=== PATIENT | female | born 1960 | race Caucasian/White ===

== ENCOUNTER 2017-03-12 16:27 | Observation (INO) | payer BC, MEDICARE ==
[~2017-03-12] VITALS: Ht 160 cm; Wt 59.7 kg
[2017-03-12 18:00] VITALS: BP 127/83
[2017-03-12 19:15] VITALS: BP 115/76
[2017-03-12] MEDS ORDERED: IV NORMAL SALINE 1000ML BAG 1,000 ML IV SCH (19:18)
[2017-03-12 19:35] VITALS: BP 127/83
[2017-03-12] MEDS ORDERED: GABA400C PO (20:00)
[2017-03-12] MEDS ORDERED: FLU VACC QS2017-18 (36MOS+)/PF 0.5 ML SYRINGE. VAX IM ONE (20:00)
[2017-03-12] MEDS ORDERED: CHOL500016 PO (20:00)
[2017-03-12] MEDS ORDERED: OXYC-327 PO (20:00)
[2017-03-12] MEDS ORDERED: CLON2TAB PO ×2 (20:00→21:49)
[2017-03-12] MEDS ORDERED: DEXT5TAB27 PO (20:00)
[2017-03-12] MEDS ORDERED: DULO30CA2 PO (20:00)
[2017-03-12] MEDS ORDERED: GABA800T PO (20:00)
[2017-03-12] MEDS ORDERED: CYCL10TA2 PO (20:00)
[2017-03-12] MEDS ORDERED: TRAZ300T2 PO (20:00)
[2017-03-12] MEDS ORDERED: OLAN10TA9 PO (20:00)
[2017-03-12] MEDS ORDERED: CYCLOBENZAPRINE 10 MG TABLET. PO PRN (20:15)
[2017-03-12] MEDS: NICOTINE 21MG PATCH. TD SCH (20:30)
[2017-03-12] MEDS ORDERED: clonazePAM 1 MG TABLET PO PRN (20:30)
[2017-03-12] MEDS ORDERED: oxyCODONE/APAP 7.5/325 1 TAB TABLET PO PRN ×2 (20:45)
[2017-03-12] MEDS ORDERED: DULoxetine HCL 30 MG CAPSULE.DR PO SCH (21:00)
[2017-03-12] MEDS ORDERED: traZODone 100 MG TABLET. PO SCH (21:00)
[2017-03-12] MEDS ORDERED: OLANZapine 5 MG TABLET PO SCH (21:00)
--- NOTE | 2017-03-12 21:00 | HP ---
ADMIT DATE: 03/12/2017 CHIEF COMPLAINT: Toe injury. HISTORY OF PRESENT ILLNESS: The patient is a 56-year-old woman with past medical history of fibromyalgia who presented to [facility] Emergency Room after slipping off her ladder barefoot catching her right fifth toe on one of the rungs and essentially degloving the distal carpal bone. This apparently cleanly came off and she brought [facility] skin cap in with her. She was transferred here for amputation. Dr. Long is aware. The patient relates that her pain currently is actually very well controlled. She has no other issues at this time. PAST MEDICAL HISTORY: Fibromyalgia, breast cancer 12 years ago, status post bilateral mastectomies. Cancer was on the right, left was resected prophylactically with reconstruction. FAMILY HISTORY: Positive for hypertension and heart disease in sister as well as father, multiple cancers as well. SOCIAL HISTORY: Lives with her , has picked up smoking again and smoking about a half a pack after having quit for many years. ALLERGIES: CODEINE AND KIWI. MEDICATIONS: MAR reconciled with home medications. REVIEW OF SYSTEMS: Positive as per HPI. Rest of organ system review currently is negative. PHYSICAL EXAMINATION: VITAL SIGNS: From today show a blood pressure of 127/83, heart rate of 70, respiratory rate at 16, she is afebrile. GENERAL: This is a 56-year-old woman, alert and oriented, in no acute distress, rapid speech. HEENT: Shows no scleral icterus. NECK: Supple. LUNGS: Clear. HEART: Regular rate and rhythm. ABDOMEN: Has positive bowel sounds, soft, nontender. EXTREMITIES: Show no edema. Right foot is wrapped in gauze and Kristofer bandage. LABORATORY DATA: Pending. ASSESSMENT AND PLAN: The patient is a 56-year-old woman with toe injury, which will require amputation of her fifth right digit. Dr. Long is already aware. The surgery is planned for tomorrow a.m. Main issue overnight will be pain control. She will have Percocet as well as morphine available p.r.n. Labs will be obtained. Her home medications for anxiety, depression, fibromyalgia, etc. will be continued. MELVINA METZ MD DR: GROVER/preston JOB#: [id number] / [id number] DAT Lucas MD MTDD
[2017-03-12] MEDS: GABAPENTIN 400 MG CAPSULE. PO SCH (21:43)
[2017-03-12] MEDS: CHOLECALCIFEROL (VITAMIN D3) 5,000 UNIT CAPSULE PO SCH (21:44)
[2017-03-12 23:23] VITALS: BP 104/56
[2017-03-13] VITALS (8 sets, daily range): BP systolic 91–109; BP diastolic 52–80
[2017-03-13] MEDS ORDERED: MORPHINE SULFATE 2 MG/ML DISP.SYRIN. IV PRN (06:45)
[2017-03-13] MEDS ORDERED: IV RINGERS,LACTATED 1000ML 1,000 ML IV SCH (06:54)
[2017-03-13 06:58] LABS: HEMATOCRIT 39.7 % (36.0-47.0); HEMOGLOBIN 13.2 g/dL (12.0-15.5); RED BLOOD COUNT 3.94 x10^6/uL (3.50-5.40); RED CELL DISTRIBUTION WIDTH 13.1 % (11.5-14.5); WHITE BLOOD COUNT 6.8 x10^3/uL (4.0-11.0)
[2017-03-13] MEDS ORDERED: fentaNYL PF VIAL 100 MCG/2 ML VIAL IV PRN (07:00)
[2017-03-13] MEDS ORDERED: ONDANSETRON PF 4 MG/2 ML VIAL. IV PRN (07:00)
[2017-03-13] MEDS ORDERED: LIDOCAINE 1% 1 ML SYRINGE. ID PRN (07:00)
[2017-03-13] MEDS ORDERED: PROCHLORPERAZINE 10 MG/2 ML VIAL. IV PRN (07:00)
[2017-03-13 07:15] LABS: CALCIUM 8.3 mg/dL (8.5-10.1); CREATININE 0.7 mg/dL (0.6-1.0); GFR 87.2; POTASSIUM 3.6 mmol/L (3.5-5.1)
[2017-03-13] MEDS ORDERED: SEVOFLURANE 61 TO 120 MINUTES. IH ONE (08:21)
[2017-03-13] MEDS ORDERED: fentaNYL PF VIAL 100 MCG/2 ML VIAL ONE ×3 (08:22→10:26)
[2017-03-13] MEDS ORDERED: MIDAZOLAM HCL/PF 2 MG/2 ML VIAL. ONE (08:22)
[2017-03-13] MEDS ORDERED: DEXAMETHASONE SOD PHOS 20 MG/5 ML VIAL. ONE (08:22)
[2017-03-13] MEDS ORDERED: PROPOFOL 20 ML IV ONE (08:22)
[2017-03-13] MEDS ORDERED: ONDANSETRON PF 4 MG/2 ML VIAL. ONE (08:22)
[2017-03-13] MEDS ORDERED: LIDOCAINE 2% PF Vial for OR 5 ML VIAL. ONE (08:22)
[2017-03-13] MEDS: GABAPENTIN 400 MG CAPSULE. PO SCH (08:28)
[2017-03-13] MEDS: CHOLECALCIFEROL (VITAMIN D3) 5,000 UNIT CAPSULE PO SCH (08:28)
[2017-03-13] MEDS: NICOTINE 21MG PATCH. TD SCH (08:29)
[2017-03-13] MEDS ORDERED: ceFAZolin 1GM IVPB FOR OMNI 1 GM/50 ML BAG IV ONE (08:55)
[2017-03-13] MEDS ORDERED: AMPHETAMINE PO SCH (09:00)
[2017-03-13] MEDS ORDERED: DEXTROAMPHETAMINE PO SCH (09:00)
[2017-03-13] MEDS: fentaNYL PF VIAL 100 MCG/2 ML VIAL IV PRN ×3 (09:22→10:30)
--- NOTE | 2017-03-13 09:35 | PDOC ---
BRIEF OPERATIVE NOTE Date: Mar 13, 2017 Pre-Op Diagnosis Traumatic amputation R 5th toe Post-Op Diagnosis same Procedure Performed I and D, completion amputation Surgeon Mercedes Anesthesiologist Raymond Anesthesia Type: General, Local Blood Loss see op report Complications none VIVI SWANSON II, MD Mar 13, 2017 09:35
[2017-03-13] MEDS ORDERED: LIDOCAINE 1% PF 30 ML VIAL. ONE (09:36)
[2017-03-13] MEDS ORDERED: BUPIVACAINE 0.5% 50 ML VIAL. ONE (09:36)
[2017-03-13] MEDS ORDERED: ePHEDrine PF IN SALINE 50 MG/5 ML DISP.SYRIN IV ONE (09:40)
[2017-03-13] MEDS ORDERED: FLU VACC QS2017-18 (36MOS+)/PF 0.5 ML SYRINGE. VAX IM ONE (10:00)
[2017-03-13] MEDS ORDERED: KETOROLAC 30 MG/ML INJ. ONE (10:34)
[2017-03-13] MEDS ORDERED: KETOROLAC 30 MG/ML INJ. IV ONE (10:45)
--- NOTE | 2017-03-13 11:10 | OP ---
DATE OF SURGERY: 03/13/2017 SURGEON: Cristobal Swanson MD. BOTTOM BUFFER: None. PREOPERATIVE DIAGNOSIS: Traumatic amputation of distal portion of right fifth toe. POSTOPERATIVE DIAGNOSIS: Traumatic amputation of distal portion of right fifth toe. PROCEDURE PERFORMED: 1. Completion amputation, right fifth toe. 2. Irrigation and debridement down to bone, excisional. COMPLICATIONS: None. ESTIMATED BLOOD LOSS: 5 mL. TOURNIQUET TIME: 14 minutes. ANESTHESIA: General plus local. REASON FOR PROCEDURE: The patient is a very pleasant 56-year-old female who I had seen in consultation last night after she slipped and fell barefoot on the ladder, suffering the above injury. Please see my consult note for further details. I had a discussion of partial distal ray amputation versus completion amputation and saving a small portion of the fifth toe and she really wanted to save as much of the toes as possible. I told this will be dictated by appropriate soft tissue coverage and explained this to her in layman's terms and she elected to proceed with surgery. DESCRIPTION OF PROCEDURE: The patient was greeted in the preoperative area by myself. Correct extremity was marked and verified. The patient was taken to the operative suite and antibiotics were started en route. Once in the OR, transferred gently supine to the OR table and had successful induction of general anesthetic. We then placed a nonsterile tourniquet to her right thigh and taped it in place. We then proceeded to prep and drape right lower extremity in our usual sterile fashion including Betadine paint. I then exsanguinated the extremity and I using only gravity insufflated the tourniquet to 250 mmHg. This was left in place for 14 minutes. After this, I irrigated out the open wound and inspected the soft tissue. She had a degloved and avulsed large portion of the plantar aspect of her toe, but still had a good amount on the dorsal aspect. I used a rongeur to trim back bone to give me a tension-free soft tissue coverage. I then freshened up the skin edges and reapproximated the skin edges using a dorsal flap. I closed the skin after irrigating it out again with simple interrupted 3-0 nylon. We then let the tourniquet down. The wound bed was dry. There was really oozing. I then injected 5 mL of local anesthetic mixture for a digital block affect. I then placed Xeroform, sterile gauze, Kerlix and loose Kristofer wrap over the foot and ankle below the bandages in place. Prior to completion of wound closure, all counts reported correct x 2. No complications. Postop plan is for her to weightbear through her heel, knee and rest as much as she is able to. She can be discharged home later today. She will follow up with me in 2 weeks, sooner should any problem arise. CRISTOBAL SWANSON MD DR: ENID/preston JOB#: [id number] / [id number] WILMER
[2017-03-13] MEDS ORDERED: GABAPENTIN 400 MG CAPSULE. PO SCH (12:00)
--- NOTE | 2017-03-13 12:23 | PDOC ---
PROGRESS NOTES Chief Complaint Chief Complaint Toe injury Fibromyalgia Breast CA w/ b/l mastectomy History of Present Illness History of Present Illness 56 yo F fell off a ladder and 5th digit of R foot was injured severely. No acute overnight events. Pt had toe amputated today 03/13/17. Pt was in recovery sedation during visit in [facility]. Dressing was CDI. Vitals Vitals Vital Signs Date Time Temp Pulse Resp B/P (MAP) Pulse Ox O2 Delivery O2 Flow Rate FiO2 03/13/17 11:15 95.7 70 18 97/55 (69) 99 Room Air 95.7 03/13/17 11:00 2.0 Physical Exam General: No acute distress, Other (Mildly sedated following surg) Heart: Regular rate, Normal S1, Normal S2 Lungs: Clear Abdomen: Normal bowel sounds, Soft Extremities: No clubbing, No cyanosis, Other (CDI bandage on R foot) Labs LABS Laboratory Tests Test 03/13/17 06:20 White Blood Count 6.8 x10^3/uL (4.0-11.0) Red Blood Count 3.94 x10^6/uL (3.50-5.40) Hemoglobin 13.2 g/dL (12.0-15.5) Hematocrit 39.7 % (36.0-47.0) Mean Corpuscular Volume 101 fL (79-100) Mean Corpuscular Hemoglobin 34 pg (25-35) Mean Corpuscular Hemoglobin Concent 33 g/dL (31-37) Red Cell Distribution Width 13.1 % (11.5-14.5) Platelet Count 227 x10^3/uL (140-400) Sodium Level 142 mmol/L (136-145) Potassium Level 3.6 mmol/L (3.5-5.1) Chloride Level 107 mmol/L (98-107) Carbon Dioxide Level 32 mmol/L (21-32) Anion Gap 3 (6-14) Blood Urea Nitrogen 12 mg/dL (7-20) Creatinine 0.7 mg/dL (0.6-1.0) Estimated GFR (Cockcroft-Gault) 87.2 Glucose Level 103 mg/dL (70-99) Calcium Level 8.3 mg/dL (8.5-10.1) Review of Systems Review of Systems Pt was sedated and in recovery, unable to perform full ROS Assessment and Plan Assessmemt and Plan R 5th toe amputation: stable following surg Continue pain meds Continue benzos prn for anxiety Continue IVF Continue home meds Continue nicotine patch Dispo: Likely DC to home today Problems: Comment Review of Relevant I have reviewed the following items yesenia (where applicable) has been applied. Labs Laboratory Tests Test 03/13/17 06:20 White Blood Count 6.8 x10^3/uL (4.0-11.0) Red Blood Count 3.94 x10^6/uL (3.50-5.40) Hemoglobin 13.2 g/dL (12.0-15.5) Hematocrit 39.7 % (36.0-47.0) Mean Corpuscular Volume 101 fL (79-100) Mean Corpuscular Hemoglobin 34 pg (25-35) Mean Corpuscular Hemoglobin Concent 33 g/dL (31-37) Red Cell Distribution Width 13.1 % (11.5-14.5) Platelet Count 227 x10^3/uL (140-400) Sodium Level 142 mmol/L (136-145) Potassium Level 3.6 mmol/L (3.5-5.1) Chloride Level 107 mmol/L (98-107) Carbon Dioxide Level 32 mmol/L (21-32) Anion Gap 3 (6-14) Blood Urea Nitrogen 12 mg/dL (7-20) Creatinine 0.7 mg/dL (0.6-1.0) Estimated GFR (Cockcroft-Gault) 87.2 Glucose Level 103 mg/dL (70-99) Calcium Level 8.3 mg/dL (8.5-10.1) Laboratory Tests Test 03/13/17 06:20 White Blood Count 6.8 x10^3/uL (4.0-11.0) Red Blood Count 3.94 x10^6/uL (3.50-5.40) Hemoglobin 13.2 g/dL (12.0-15.5) Hematocrit 39.7 % (36.0-47.0) Mean Corpuscular Volume 101 fL (79-100) Mean Corpuscular Hemoglobin 34 pg (25-35) Mean Corpuscular Hemoglobin Concent 33 g/dL (31-37) Red Cell Distribution Width 13.1 % (11.5-14.5) Platelet Count 227 x10^3/uL (140-400) Sodium Level 142 mmol/L (136-145) Potassium Level 3.6 mmol/L (3.5-5.1) Chloride Level 107 mmol/L (98-107) Carbon Dioxide Level 32 mmol/L (21-32) Anion Gap 3 (6-14) Blood Urea Nitrogen 12 mg/dL (7-20) Creatinine 0.7 mg/dL (0.6-1.0) Estimated GFR (Cockcroft-Gault) 87.2 Glucose Level 103 mg/dL (70-99) Calcium Level 8.3 mg/dL (8.5-10.1) Medications Current Medications Sodium Chloride 1,000 ml @ 100 mls/hr Q10H IV Last administered on 03/12/17 21:42; Start 03/12/17 at 19:18; Stop 03/13/17 at 05:17; Status DC Info (Do NOT chart on this placeholder) 0.5 each 1X ONCE MC ; Start 03/14/17 at 09:00; Stop 03/14/17 at 09:01; Status UNV Influenza Virus Vaccine Quadrival (Fluarix Quad [id number] Syringe) 0.5 ml ONCE ONCE VAX IM ; Start 03/12/17 at 20:00; Stop 03/12/17 at 20:01; Status Cancel Cyclobenzaprine HCl (Flexeril) 10 mg PRN QID PRN PO MUSCLE SPASMS; Start at 20:15 Duloxetine HCl (Cymbalta) 30 mg HS PO Last administered on 03/12/17 21:43; Start 03/12/17 at 21:00 Gabapentin (Neurontin) 400 mg DAILYWLUN PO ; Start 03/13/17 at 12:00 Vitamin D (Vitamin D3) 5,000 unit DAILY PO Last administered on 03/12/17 21:44 ; Start 03/12/17 at 21:00 Clonazepam (KlonoPIN) 2 mg PRN DAILY PRN PO ANXIETY / AGITATION; Start at 20:30 Non-Formulary Medication 30 mg DAILY PO ; Start 03/13/17 at 09:00; Status UNV Gabapentin (Neurontin) 800 mg BID PO Last administered on 03/12/17 21:43; Start 03/12/17 at 21:00 Olanzapine (ZyPREXA) 10 mg QHS PO Last administered on 03/12/17 22:19; Start 03/12/17 at 21:00 Trazodone HCl (Desyrel) 300 mg QHS PO Last administered on 03/12/17 21:44; Start 03/12/17 at 21:00 Nicotine (Nicoderm Cq 21mg) 1 patch DAILY TD ; Start 03/12/17 at 20:30 Influenza Virus Vaccine Quadrival (Fluarix Quad [id number] Syringe) 0.5 ml ONCE ONCE VAX IM ; Start 03/13/17 at 10:00; Stop 03/13/17 at 10:29; Status DC Oxycodone/ Acetaminophen (Percocet 7.5/ 325) 1 tab PRN Q4HRS PRN PO PAIN MOD TO SEV; Start 03/12/17 at 20:45 Oxycodone/ Acetaminophen (Percocet 7.5/ 325) 2 tab PRN Q4HRS PRN PO PAIN MOD TO SEV Last administered on 03/12/17 20:50; Start 03/12/17 at 20:45 Cefazolin Sodium 1 gm/Sodium Chloride 50 ml @ 100 mls/hr 1X ONCE IV ; Start at 21:00; Stop 03/12/17 at 21:29; Status UNV Cefazolin Sodium 50 ml @ 100 mls/hr 1X ONCE IV ; Start 03/12/17 at 21:00; Stop 03/12/17 at 21:29; Status Cancel Non-Formulary Medication 10 mg HS PO ; Start 03/13/17 at 21:00; Status UNV Cefazolin Sodium 50 ml @ 100 mls/hr PREOP PRN PRN IV PREOP; Start 03/13/17 at 08:00; Stop 03/14/17 at 07:59 Morphine Sulfate 2 mg PRN Q2HR PRN IV SEVERE PAIN Last administered on 06:48; Start 03/13/17 at 06:45 Ondansetron HCl (Zofran) 4 mg PRN Q6HRS PRN IV NAUSEA/VOMITING; Start 03/13/17 at 07:00; Stop 03/14/17 at 06:59 Fentanyl Citrate (Fentanyl 2ml Vial) 25 mcg PRN Q5MIN PRN IV MILD PAIN; Start 03/13/17 at 07:00; Stop 03/14/17 at 06:59 Fentanyl Citrate (Fentanyl 2ml Vial) 50 mcg PRN Q5MIN PRN IV MODERATE PAIN Last administered on 03/13/17t 10:12; Start 03/13/17 at 07:00; Stop 03/14/17 at 06:59 Ringer's Solution 1,000 ml @ 30 mls/hr Q24H IV ; Start 03/13/17 at 06:54; Stop 03/13/17 at 18:53 Lidocaine HCl 2 ml PRN 1X PRN ID PRIOR TO IV START; Start 03/13/17 at 07:00; Stop 03/14/17 at 06:59 Prochlorperazine Edisylate (Compazine) 5 mg PACU PRN PRN IV NAUSEA, MRX1; Start 03/13/17 at 07:00; Stop 03/14/17 at 06:59 Sevoflurane (Ultane) 60 ml STK-MED ONCE IH ; Start 03/13/17 at 08:21; Stop 03/13 at 08:22; Status DC Midazolam HCl (Versed) 2 mg STK-MED ONCE .ROUTE ; Start 03/13/17 at 08:22; Stop 03/13/17 at 08:23; Status DC Fentanyl Citrate (Fentanyl 2ml Vial) 100 mcg STK-MED ONCE .ROUTE ; Start at 08:22; Stop 03/13/17 at 08:23; Status DC Propofol 20 ml @ As Directed STK-MED ONCE IV ; Start 03/13/17 at 08:22; Stop at 08:23; Status DC Dexamethasone Sodium Phosphate (Decadron) 20 mg STK-MED ONCE .ROUTE ; Start at 08:22; Stop 03/13/17 at 08:23; Status DC Ondansetron HCl (Zofran) 4 mg STK-MED ONCE .ROUTE ; Start 03/13/17 at 08:22; Stop 03/13/17 at 08:23; Status DC Lidocaine HCl (Lidocaine Pf 2% Vial) 5 ml STK-MED ONCE .ROUTE ; Start 03/13/17 at 08:22; Stop 03/13/17 at 08:23; Status DC Fentanyl Citrate (Fentanyl 2ml Vial) 100 mcg STK-MED ONCE .ROUTE ; Start at 09:16; Stop 03/13/17 at 09:17; Status DC Cefazolin Sodium 1 gm/Sodium Chloride 50 ml @ 100 mls/hr Q6H IV ; Start at 14:00; Stop 03/14/17 at 02:29 Bupivacaine HCl (Marcaine 0.5%) 50 ml STK-MED ONCE .ROUTE Last administered on 03/13/17 09:46; Start 03/13/17 at 09:36; Stop 03/13/17 at 09:37; Status DC Lidocaine HCl 30 ml STK-MED ONCE .ROUTE Last administered on 03/13/17 09:46; Start 03/13/17 at 09:36; Stop 03/13/17 at 09:37; Status DC Ephedrine Sulfate 50 mg STK-MED ONCE IV ; Start 03/13/17 at 09:40; Stop at 09:41; Status DC Fentanyl Citrate (Fentanyl 2ml Vial) 100 mcg STK-MED ONCE .ROUTE ; Start at 10:26; Stop 03/13/17 at 10:27; Status DC Ketorolac Tromethamine (Toradol) 30 mg STK-MED ONCE .ROUTE ; Start 03/13/17 at 10:34; Stop 03/13/17 at 10:35; Status DC Ketorolac Tromethamine (Toradol) 30 mg 1X ONCE IV Last administered on 10:41; Start 03/13/17 at 10:45; Stop 03/13/17 at 10:49; Status DC Active Scripts Active Reported Klonopin (Clonazepam) 2 Mg Tablet 10 Mg PO HS Vitamin D3 (Cholecalciferol (Vitamin D3)) 5,000 Unit Tablet 5,000 Unit PO DAILY Percocet 7.5-325 Mg Tablet (Oxycodone/Acetaminophen) 1 Each Tablet 2 Tab PO PRN Q6HRS PRN Percocet 7.5-325 Mg Tablet (Oxycodone/Acetaminophen) 1 Each Tablet 1 Tab PO PRN Q6HRS PRN Cymbalta (Duloxetine Hcl) 30 Mg Capsule.dr 30 Mg PO HS Cyclobenzaprine Hcl 10 Mg Tablet 10 Mg PO PRN QID PRN Trazodone Hcl 300 Mg Tablet 300 Mg PO HS Olanzapine 10 Mg Tablet 10 Mg PO HS Adderall 5 Mg Tablet (Dextroamphetamine/Amphetamine) 5 Mg Tablet 30 Mg PO DAILY Neurontin (Gabapentin) 800 Mg Tablet 800 Mg PO BID Neurontin (Gabapentin) 400 Mg Capsule 400 Mg PO DAILYWLUN Vitals/I & O Vital Sign - Last 24 Hours 03/12/17 03/12/17 03/12/17 03/12/17 18:00 19:14 19:15 19:35 Temp 95.9 97.9 95.9 95.9 97.9 95.9 Pulse 70 70 70 Resp 16 16 16 B/P (MAP) 127/83 (98) 115/76 (89) 127/83 (98) Pulse Ox 92 92 92 O2 Delivery Room Air Room Air Room Air 03/12/17 03/12/17 03/12/17 03/12/17 20:00 20:50 21:50 23:23 Temp 98.4 98.4 Pulse 59 Resp 16 16 B/P (MAP) 104/56 (72) Pulse Ox 95 O2 Delivery Room Air Room Air Room Air Room Air 03/13/17 03/13/17 03/13/17 03/13/17 02:38 06:48 07:00 07:20 Temp 97.5 97.9 97.5 97.9 Pulse 66 61 Resp 16 16 B/P (MAP) 99/69 (79) 102/52 (69) Pulse Ox 95 90 95 O2 Delivery Room Air Room Air Room Air Room Air 03/13/17 03/13/17 03/13/17 03/13/17 07:30 09:19 09:22 10:05 Temp 98.0 98.5 98.0 98.5 Pulse 73 77 Resp 22 21 19 B/P (MAP) 101/68 106/62 Pulse Ox 94 94 100 O2 Delivery Room Air Room Air Room Air Nasal Cannula O2 Flow Rate 2 03/13/17 03/13/17 03/13/17 03/13/17 10:20 10:30 10:35 10:50 Temp 98.0 98.0 Pulse 69 62 66 Resp 18 16 18 16 B/P (MAP) 100/63 110/70 104/55 Pulse Ox 100 100 98 100 O2 Delivery Nasal Cannula Room Air Nasal Cannula Room Air O2 Flow Rate 2 2 03/13/17 03/13/17 11:00 11:15 Temp 95.7 95.7 Pulse 70 Resp 18 B/P (MAP) 97/55 (69) Pulse Ox 98 99 O2 Delivery Room Air Room Air O2 Flow Rate 2.0 Intake and Output 03/13/17 03/13/17 03/14/17 15:00 23:00 07:00 Intake Total 10 ml Balance 10 ml JAMISON GRAJEDA III, DO Mar 13, 2017 12:23
--- NOTE | 2017-03-13 18:15 | CONS ---
DATE OF CONSULTATION: 03/12/2017 REFERRING PROVIDER: Marion Lockett MD. CONSULTING PROVIDER: Cristobal Swanson MD. CHIEF COMPLAINT: Right fifth toe pain. HISTORY OF PRESENT ILLNESS: The patient is a very pleasant 56-year-old fairly healthy female who slipped and fell while climbing barefoot on a ladder tearing off essentially half of her toe and degloving a large portion of it on her right foot at the fifth toe. She complains of pain at this area that is radiating proximally. It is worse when she tries to weightbear on it. She was seen initially in an outside institution and sent here for definitive management. She denies any other injury. No other complaints or concerns. ALLERGIES: 1. CODEINE. 2. KIWI. PAST MEDICAL HISTORY: Fibromyalgia, history of breast cancer. PAST SURGICAL HISTORY: Bilateral mastectomies. FAMILY HISTORY: Hypertension, heart disease. SOCIAL HISTORY: Lives with family. She smokes half a pack per day. MEDICATIONS: Reviewed, please see MRAD. REVIEW OF SYSTEMS: Negative except as per HPI. PHYSICAL EXAMINATION: VITAL SIGNS: Reviewed. GENERAL: The patient is alert and oriented, no acute distress. She is examined in the hospital bed. HEENT: Normocephalic, atraumatic. Extraocular muscles are intact. CARDIOVASCULAR: Regular rate and rhythm. Dorsalis pedis 2+. No edema in her lower extremities. LUNGS: Respirations are unlabored with symmetric chest size. ABDOMEN: Soft, nondistended. EXTREMITIES: Examination of right lower extremity reveals traumatic avulsion of the distal half of her fifth toe with degloving to approximately the MTP joint plantarly. No other wounds. There is exposed bone. Normal sensation. She can wiggle the remainder of her toes. IMAGING: X-rays are reviewed and show amputation through the middle phalanx of her right third toe. Her x-rays are interpreted by myself. Report was also reviewed. IMPRESSION: Traumatic amputation, right fifth toe. PLAN: I did discuss irrigation, debridement and completion amputation with her. She does wish to save as much of the toes as possible. I did discuss with her that this will be dictated by appropriate soft tissue coverage and answered her and her daughter's questions. OR tomorrow morning. CRISTOBAL SWANSON MD DR: ENID/preston JOB#: [id number] / [id number] WILMER
[2017-03-13] MEDS ORDERED: CLONAZEPAM PO SCH (21:00)
[2017-03-14] MEDS ORDERED: INFLUENZA VAX SCREEN BY RX. MC ONE (09:00)
== END 2017-03-13 15:10 | disposition home or self-care (01) ==
LOC: 4 NORTH 18:06 → INTOOBSV 18:06
PROVIDERS: ADMIT Internal Medicine Hematology & Oncology; ATTEND Internal Medicine Hematology & Oncology
DX: S98.141A Partial traumatic amputation of one right lesser toe, initial encounter (principal); F32.9 Major depressive disorder, single episode, unspecified; F17.210 Nicotine dependence, cigarettes, uncomplicated; F41.9 Anxiety disorder, unspecified; M79.7 Fibromyalgia; Z82.49 Family history of ischemic heart disease and other diseases of the circulatory system; Z85.3 Personal history of malignant neoplasm of breast; Z90.13 Acquired absence of bilateral breasts and nipples; Y93.89 Activity, other specified; Y92.89 Other specified places as the place of occurrence of the external cause; W01.0XXA Fall on same level from slipping, tripping and stumbling without subsequent striking against object, initial encounter; Y99.8 Other external cause status
CPT/HCPCS: 11044; 28810; 36415; 80048; 85027; 96374; 97162; G0378; J0690; J1100; J1885; J2250; J2270; J2405; J2704; J3010; J3490; J7030; G0379; J2001

== ENCOUNTER 2017-06-25 14:13 | Emergency (ER) | payer MEDICARE, BC ==
[2017-06-25] MEDS ORDERED: IPRATRPIUM/ALBUTEROL 0.5/2.5MG 3 ML NEBU. (15:32)
[2017-06-25] MEDS: IPRATRPIUM/ALBUTEROL 0.5/2.5MG 3 ML NEBU. NEB ×2 (15:35→16:30)
[2017-06-25 16:46] LABS: ADD MAN DIFF? NO
[2017-06-25 16:48] LABS: BASO % 0 % (0-3); EOS % 0 % (0-3); HEMATOCRIT 41.3 % (36.0-47.0); HEMOGLOBIN 13.8 g/dL (12.0-15.5); LYMPH # 1.3 x10^3/uL (1.0-4.8); LYMPH % 13 % (24-48); MEAN CORPUSCULAR HEMOGLOBIN 33 pg (25-35); MEAN CORPUSCULAR HGB CONC 34 g/dL (31-37); MEAN CORPUSCULAR VOLUME 98 fL (79-100); MONO % 8 % (0-9); NEUT % 79 % (31-73); PLATELET COUNT 248 x10^3/uL (140-400); RED BLOOD COUNT 4.24 x10^6/uL (3.50-5.40); RED CELL DISTRIBUTION WIDTH 13.5 % (11.5-14.5); WHITE BLOOD COUNT 9.6 x10^3/uL (4.0-11.0)
[2017-06-25] MEDS: methylPREDNISolone SOD SUCC PF 125 MG/2 ML VIAL. IV (16:48)
[2017-06-25] MEDS: IV NORMAL SALINE 1000ML BAG 1,000 ML IV (16:48)
[2017-06-25 16:59] LABS: ANION GAP 13 (6-14); BLOOD UREA NITROGEN 12 mg/dL (7-20); CALCIUM 8.8 mg/dL (8.5-10.1); CARBON DIOXIDE 25 mmol/L (21-32); CHLORIDE 100 mmol/L (98-107); GFR 57.8; GLUCOSE 152 mg/dL (70-99); SODIUM 138 mmol/L (136-145)
[2017-06-25 17:21] LABS: TROPONINI < 0.017 ng/mL (0.000-0.055)
== END 2017-06-25 18:50 | disposition home or self-care (01) ==
LOC: ER 14:13
DX: J44.1 Chronic obstructive pulmonary disease with (acute) exacerbation (principal); F41.9 Anxiety disorder, unspecified; J06.9 Acute upper respiratory infection, unspecified; F32.9 Major depressive disorder, single episode, unspecified; M79.7 Fibromyalgia; Z90.13 Acquired absence of bilateral breasts and nipples; Z86.19 Personal history of other infectious and parasitic diseases; Z88.5 Allergy status to narcotic agent; Z91.018 Allergy to other foods
CPT/HCPCS: 36415; 71010; 80048; 84484; 85025; 93005; 94640; 96361; 96374; 96375; 99285-25; J2060; J2930; J7030; J7620

== ENCOUNTER → 2017-07-15 | Outpatient (CLI) | payer MEDICARE, BC | END | disposition home or self-care (01) | LOC: KCIC MRI 13:01 | DX: M19.011 Primary osteoarthritis, right shoulder (principal); M25.411 Effusion, right shoulder | CPT/HCPCS: 73221 ==

== ENCOUNTER → 2019-03-30 | Outpatient (CLI) | payer MEDICARE, BC ==
[2017-06-25 18:43] VITALS: BP 120/70
[~2019-03-30] MED LIST: BENZ-8 PO; CHOL500016 PO; CLON2TAB PO; CYCL10TA2 PO; DEXT5TAB27 PO; DULO30CA2 PO; GABA-689 PO; GABA800T PO; OLAN10TA9 PO; ONDA4TAB10 SL; OXYC1TAB19 PO; PRED20TA PO; TRAZ300T2 PO
--- NOTE | 2019-03-30 15:48 | KCIC ---
Examination: MRI of the left ankle without contrast HISTORY: History of left ankle pain COMPARISON: None available TECHNIQUE: Multiplanar, multisequence MR imaging of the left ankle are performed without contrast FINDINGS: The Achilles tendon grossly appears intact. The attachment of the plantar fascia to the inferior aspect of the calcaneus grossly appears intact. Vertical nondisplaced fracture of the distal calcaneus with moderate surrounding trabecular edema. The alignment of the tarsal bones grossly appears unremarkable. Mild edema identified in the sinus tarsi. The anterior extensor tendons, flexor tendons grossly appears unremarkable. There is a longitudinal split tear of the peroneus longus tendon distal to the fibula. Moderate increased intermediate T1 signal identified in the peroneus longus tendon likely tendinopathy. The attachment of the peroneus longus, peroneal brevis tendon grossly appears intact. Small amount of fluid identified about the peroneal tendons at the level of the fibula. The anterior, posterior tibiofibular ligament, talofibular ligament appear intact. The Lisfranc ligament appears intact. IMPRESSION: 1. Nondisplaced fracture of the distal calcaneus. 2. Moderate tendinopathy peroneus longus with longitudinal split tear of the peroneus longus tendon. Mild tenosynovitis peroneal tendons. Electronically signed by: Marques Perdomo MD (03/30/2019 3:46 PM) [facility]
== END | disposition home or self-care (01) ==
LOC: KCIC MRI 13:49
PROVIDERS: ATTEND Orthopaedic Surgery
DX: S92.025A Nondisplaced fracture of anterior process of left calcaneus, initial encounter for closed fracture (principal); Z88.5 Allergy status to narcotic agent; Z91.09 Other allergy status, other than to drugs and biological substances; X58.XXXA Exposure to other specified factors, initial encounter; Y93.89 Activity, other specified; Y92.89 Other specified places as the place of occurrence of the external cause; Y99.8 Other external cause status
CPT/HCPCS: 73721

== ENCOUNTER → 2019-04-06 | Outpatient (CLI) | payer MEDICARE, BC ==
[2017-06-25 18:43] VITALS: BP 120/70
--- NOTE | 2019-04-06 17:12 | KCIC ---
EXAM: AP and lateral views of the cervical spine DATE: 04/06/2019 12:00 AM CLINICAL HISTORY: Cervical spine fusion COMPARISON: None available. FINDINGS: On the lateral view, the cervical spine is imaged from the skull base through C7. Postoperative changes of C4-5 laminectomy and posterolateral fixation are again anatomic alignment without definite hardware complication. Changes of ventral cervical discectomy and fusion C5-6 and C6-7 are essentially stable to 03/10/2019 with stable fracture through the anterior plate at C6-7. Evaluation for bony bridging at C6-7 limited. Vertebral body heights are preserved. Mild C4-5 disc height loss. Straightening of the normal cervical lordosis. No spondylolisthesis. Normal predental space. No significant prevertebral soft tissue swelling. IMPRESSION: Postsurgical changes as above. The C4-5 laminectomy and posterolateral fusion is in near-anatomic alignment without definite hardware complication. Electronically signed by: Jasiel Liu MD (04/06/2019 5:09 PM) [facility]
== END | disposition home or self-care (01) ==
LOC: KCIC 16:01
PROVIDERS: ATTEND Neurological Surgery
DX: M48.02 Spinal stenosis, cervical region (principal); Z98.890 Other specified postprocedural states
CPT/HCPCS: 72040

== ENCOUNTER 2021-09-23 17:24 | Emergency (ER) | payer MEDICARE, BC ==
[~2021-09-23] VITALS: Ht 157.5 cm; Wt 50.4 kg
[~2021-09-23 17:24] MED LIST changes: +CYCL10TA19 PO; -CYCL10TA2 PO; +OLAN10TA69 PO; -OLAN10TA9 PO
[2021-09-23] MEDS ORDERED: HYDROcodone/APAP 5/325MG 1 TAB TABLET PO ONE (18:15)
[2021-09-23] MEDS ORDERED: diazePAM 5 MG TABLET PO ONE (18:15)
--- NOTE | 2021-09-23 18:52 | RAD ---
XR ELBOW COMPLETE_RIGHT 3+ VIEWS 09/23/2021 6:24 PM INDICATION: Fall COMPARISON: None available. TECHNIQUE: 3 views of the right elbow are provided. FINDINGS/ IMPRESSION: There may be a small elbow joint effusion. There is no acute fracture or dislocation. Although, given small elbow joint effusion, fracture remains a differential consideration. Short-term follow-up coul d be of benefit. 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 Bone mineralization is within normal limits. Regional soft tissues are within normal limits. There is no soft tissue gas or osseous erosion. No radiopaque foreign body. Electronically signed by: Estephanie Holland MD (09/23/2021 6:50 PM) [facility]
--- NOTE | 2021-09-23 18:57 | RAD ---
PQRS Compliance Statement: One or more of the following individualized dose reduction techniques were utilized for this examinat ion: 1. Automated exposure control 2. Adjustment of the mA and/or kV according to patient size 3. Use of iterative reconstruction technique CT THORACIC SPINE WO 09/23/2021 6:06 PM Indication: Fall with pain in the mid back COMPARISON: None available. TECHNIQUE: Multiple axial CT images of the thoracic spine were obtained with intravenous contrast. Co olayinka and sagittal reformats are provided. FINDINGS: There is reverse S-shaped scoliosis of the thoracolumbar spine with apex levocurvature at T3-T4 and a pex dextrocurvature at T9-T10. Anterior cervical discectomy and fusion hardware is identified from C5 through C7. Moderate disc height loss at C2-3 and moderate to advanced disc height loss at T3-T4. Mi ld disc height loss at C4-5. Vertebral body heights are maintained. No acute fracture is identified. Spinous processes are intact. Mild to moderate facet arthropathy in lower thoracic spine. There is no prevertebral edema. No paraspinal soft tissue hematoma. No compressive epidural hematoma. No signifi cant osseous spinal canal stenosis. At T10-T11, there is mild disc bulge with mild facet arthropathy resulting in mild osseous spinal canal stenosis. At T11-T12, there is a mild disc bulge with calcific ation of ligamentum flavum resulting in mild spinal canal stenosis. Indentation the left posterolater al thecal sac. Thoracic aorta is normal in course and caliber. There is a groundglass nodule in the medial left lowe r lobe measuring 8 mm. Subsegmental atelectasis in the medial right lower lobe. No pathologically enl arged thoracic lymph nodes. Thoracic esophagus is normal in appearance. Hyperdense cyst involving the superior pole the left kidney measures 5 mm a cyst complicated by hemorrhage or protein. 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 No acute fractu re. Electronically signed by: Estephanie Holland MD (09/23/2021 6:54 PM) [facility]
[2021-09-23] MEDS ORDERED: CYCL10TA19 PO (19:44)
--- NOTE | 2021-09-23 19:44 | PHYS DOC ---
Past Medical History Past Medical History: Anxiety, Asthma, Cancer, Depression, Fibromyalgia, Hepatitis, Other Additional Past Medical Histor: breast CA; Hep C, CURED NOW, NEUROPATHY Past Surgical History: Knee Replacement, Other Additional Past Surgical Histo: bilateral mastectomy with breast aug; D&C; toes, BACK SURGERY, Smoking Status: Current Every Day Smoker Alcohol Use: Occasionally Drug Use: None General Adult EDM: Chief Complaint: MECHANICAL FALL HPI: HPI: Patient is a 60 year old female who presents the ED today complaining of 10 out of 10 right mid back pain, right elbow pain, symptoms began after she fell. She states she was walking with her dog at a gas station, she states she tripped over uneven surface of the concrete and fell landing on her right side. Denies any loss of consciousness. Denies being on any blood thinners. Denies any head pain, neck pain. Reports the pain is sharp worse on deep breaths. Denies anything relieving the pain right now. Review of Systems: Review of Systems: Constitutional: Denies fever or chills. [] Eyes: Denies change in visual acuity. [] HENT: Denies nasal congestion or sore throat. [] Respiratory: Denies cough or shortness of breath. [] Cardiovascular: Denies chest pain or edema. [] GI: Denies abdominal pain, nausea, vomiting, bloody stools or diarrhea. [] : Denies dysuria. [] Musculoskeletal: Reports right mid back pain, right elbow pain Integument: Denies rash. [] Neurologic: Denies headache, focal weakness or sensory changes. [] Psychiatric: Denies depression or anxiety. [] Heart Score: C/O Chest Pain: N/A Risk Factors: Risk Factors: DM, Current or recent (<one month) smoker, HTN, HLP, family history of CAD, obesity. Risk Scores: Score 0 - 3: 2.5% MACE over next 6 weeks - Discharge Home Score 4 - 6: 20.3% MACE over next 6 weeks - Admit for Clinical Observation Score 7 - 10: 72.7% MACE over next 6 weeks - Early Invasive Strategies Current Medications: Current Medications Medications (Trade) Dose Ordered Sig/Cam Start Time Stop Time Status Last Admin Dose Admin Acetaminophen/ Hydrocodone Bitart (Lortab 5/325) 1 tab 1X ONCE 09/23/21 18:15 09/23/21 18:19 DC 09/23/21 18:42 1 TAB Diazepam (Valium) 5 mg 1X ONCE 09/23/21 18:15 09/23/21 18:19 DC 09/23/21 18:40 5 MG Allergies: Allergies: Allergies Coded Allergies Type Severity Reaction Last Updated Verified codeine Allergy Intermediate 03/12/17 Yes kiwi Allergy Intermediate 03/12/17 Yes Physical Exam: PE: Constitutional: Well developed, well nourished, no acute distress, non-toxic appearance. [] HENT: Normocephalic, atraumatic, bilateral external ears normal, oropharynx moist, no oral exudates, nose normal. [] Eyes: PERRLA, EOMI, conjunctiva normal, no discharge. [] Neck: Normal range of motion, no tenderness, supple, no stridor. [] Cardiovascular:Heart rate regular rhythm, no murmur [] Lungs & Thorax: Bilateral breath sounds clear to auscultation [] Abdomen: Bowel sounds normal, soft, no tenderness, no masses, no pulsatile masses. [] Skin: Warm, dry, no erythema, no rash. [] Back: Tenderness on palpation of the mid right thoracic spine, no midline thoracic spine tenderness, no CVA tenderness. [] Extremities: Right elbow with bruising at the olecranon process, tenderness over the region, full range of motion to the right elbow including flexion and extension of the right forearm, plantarflexion and dorsiflexion of the right forearm. Adequate radial, median, ulnar sensation to the right fingers, no cyanosis. Neurologic: Alert and oriented X 3, normal motor function, normal sensory function, no focal deficits noted. Cranial nerves II through XII intact Psychologic: Affect normal, judgement normal, mood normal. [] Current Patient Data: Vital Signs: Vital Signs Date Time Temp Pulse Resp B/P (MAP) Pulse Ox O2 Delivery O2 Flow Rate FiO2 09/23/21 18:42 18 94 Room Air 09/23/21 17:30 98.0 69 109/70 (83) 98.0 EKG: EKG: [] Radiology/Procedures: Radiology/Procedures: []PROCEDURE: CT THORACIC SPINE WO CONTRAST PQRS Compliance Statement: One or more of the following individualized dose reduction techniques were utilized for this examination: 1. Automated exposure control 2. Adjustment of the mA and/or kV according to patient size 3. Use of iterative reconstruction technique CT THORACIC SPINE WO 09/23/2021 6:06 PM Indication: Fall with pain in the mid back COMPARISON: None available. TECHNIQUE: Multiple axial CT images of the thoracic spine were obtained with in travenous contrast. Coronal and sagittal reformats are provided. FINDINGS: There is reverse S-shaped scoliosis of the thoracolumbar spine with apex levocurvature at T3-T4 and apex dextrocurvature at T9-T10. Anterior cervical discectomy and fusion hardware is identified from C5 through C7. Moderate disc height loss at C2-3 and moderate to advanced disc height loss at T3-T4. Mild d isc height loss at C4-5. Vertebral body heights are maintained. No acute fracture is identified. Spinous processes are intact. Mild to moderate facet arthropathy in lower thoracic spine. There is no prevertebral edema. No paraspinal soft tissue hematoma. No compressive epidural hematoma. No significant osseous spinal canal stenosis. At T10-T11, there is mild disc bulge with mild facet arthropathy resulting in mild osseous spinal canal stenosis. At T11-T12, there is a mild disc bulge with calcification of ligamentum flavum resulting in mild spinal canal stenosis. Indentation the left posterolateral thecal sac. Thoracic aorta is normal in course and caliber. There is a groundglass nodule in the medial left lower lobe measuring 8 mm. Subsegmental atelectasis in the medial right lower lobe. No pathologically enlarged thoracic lymph nodes. Thoracic esophagus is normal in appearance. Hyperdense cyst involving the superior pole the left kidney measures 5 mm a cyst complicated by hemorrhage or protein. 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 No acute fracture. Electronically signed by: Julito Holland MD (09/23/2021 6:54 PM) [facility] DICTATED and SIGNED BY: JULITO HOLLAND MD DATE: 09/23/211849 PROCEDURE: ELBOW RIGHT 3V XR ELBOW COMPLETE_RIGHT 3+ VIEWS 09/23/2021 6:24 PM INDICATION: Fall COMPARISON: None available. TECHNIQUE: 3 views of the right elbow are provided. FINDINGS/ IMPRESSION: There may be a small elbow joint effusion. There is no acute fracture or dislocation. Although, given small elbow joint effusion, fracture remains a differential consideration. Short-term follow-up could be of benefit. 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 Bone mineralization is within normal limits. Regional soft tissues are within normal limits. There is no soft tissue gas or osseous erosion. No radiopaque foreign body. Electronically signed by: Jultio Holland MD (09/23/2021 6:50 PM) [facility] DICTATED and SIGNED BY: JULITO HOLLAND MD DATE: 09/23/211848 Course & Med Decision Making: Course & Med Decision Making Pertinent Labs and Imaging studies reviewed. (See chart for details) This is a 60-year-old female patient presented to the ED today with right elbow pain and right mid back pain after falling. No loss of consciousness, patient did not hit her head on the ground. Patient is not on a blood thinner. CT of thoracic spine is negative for any acute findings, right elbow x-rays are negative for any acute findings. Ice elevation encouraged. She has hydrocodone at home, she was given prescription for Flexeril and instructed to take naproxen as well. Dragon Disclaimer: Dragon Disclaimer: This electronic medical record was generated, in whole or in part, using a voice recognition dictation system. Departure Departure Impression: Primary Impression: Fall from standing Qualified Codes: W19.XXXA - Unspecified fall, initial encounter Additional Impressions: Contusion of right elbow Qualified Codes: S50.01XA - Contusion of right elbow, initial encounter Contusion of thoracic spine Disposition: HOME / SELF CARE / HOMELESS Condition: STABLE Referrals: VIK RICCI MD (PCP) follow up in one week Patient Instructions: Contusion, Ofiw-co-Mktm, Fall Prevention and Home Safety Additional Instructions: You were evaluated in the emergency room after falling. Your CT of thoracic spine and right elbow x-rays are negative for any acute findings. Try to ice and elevate the affected areas. Take deep breaths 10 times every hour while awake. Follow-up with your doctor in 1 week Scripts Cyclobenzaprine Hcl (CYCLOBENZAPRINE HCL) 10 Mg Tablet 1 TAB PO TID, #30 TAB Prov: FLORINA MONTEZ APRN 09/23/21 FLORINA MONTEZ APRN Sep 23, 2021 19:44
[2021-09-23 19:58] VITALS: BP 113/73
== END 2021-09-23 19:57 | disposition home or self-care (01) ==
LOC: ER 17:24
DX: S50.01XA Contusion of right elbow, initial encounter (principal); S20.229A Contusion of unspecified back wall of thorax, initial encounter; J45.909 Unspecified asthma, uncomplicated; Z88.5 Allergy status to narcotic agent; Z91.018 Allergy to other foods; F17.200 Nicotine dependence, unspecified, uncomplicated; W01.0XXA Fall on same level from slipping, tripping and stumbling without subsequent striking against object, initial encounter; Y93.K1 Activity, walking an animal; Y92.89 Other specified places as the place of occurrence of the external cause; Y99.8 Other external cause status
CPT/HCPCS: 72128; 73080; 99284-25